=== PATIENT | female | born 1955 | race Caucasian/White ===

== ENCOUNTER 2020-09-06 07:18 | Day surgery (SDC) | payer MEDICAID, OTHER ==
[~2020-09-06 07:18] MED LIST: Midazolam 1 MG/ML 2 ML SDV ONE; Propofol 200 MG/20 ML SDV ONE; fentaNYL 100 MCG/2 ML SDV ONE
[2020-09-06] MEDS ORDERED: Dextrose 5%-Lactated Ringers 1,000 ML IV SCH (07:45)
[2020-09-06 10:34] VITALS: BP 110/72; PULSE 60
--- NOTE | 2020-09-13 13:15 | OR ---
DATE OF PROCEDURE: 09/06/2020 SURGEON: Vargas Adhikari MD PREOPERATIVE DIAGNOSIS: Indications for screening colonoscopy. POSTOPERATIVE DIAGNOSIS: Normal colonoscopic examination. OPERATIVE PROCEDURE: Flexible colonoscopy. ANESTHESIA: IV sedation. INDICATIONS FOR PROCEDURE: A 65-year-old female presenting with an indication for screening colonoscopy. She has no personal or family history of colonic neoplasia. Plan is to proceed with colonoscopy and biopsies and/or polypectomy as indicated. Potential risks including bleeding and perforation were discussed, and the patient wishes to proceed. DETAILS OF PROCEDURE: The patient was taken to the operating room, placed in a left lateral decubitus position. IV sedation was administered, after which the initial digital rectal exam was performed and was unremarkable. Colonoscope was then passed to the level of the rectum with retroflexion revealing uncomplicated hemorrhoidal columns. Scope was then eventually passed to the level of the cecum. The prep was good with only small amount of liquid stool present. To that level, no abnormalities were noted. Specifically, there were no diverticula, no areas of colitis, no polyps or other signs of neoplasia. Scope was then withdrawn and the above findings reconfirmed, and the procedure was then concluded. Given today's normal examination and lack of any personal or family history of colon neoplasia, repeat colonoscopy should be set up for 10 years. Vargas Adhikari MD /[id number]
== END 2020-09-06 10:47 | disposition home or self-care (01) ==
LOC: JP.SDS 07:18
PROVIDERS: ATTEND Surgery
DX: Z12.11 Encounter for screening for malignant neoplasm of colon (principal); F17.210 Nicotine dependence, cigarettes, uncomplicated; J44.9 Chronic obstructive pulmonary disease, unspecified
CPT/HCPCS: 45378; J2250; J2704; J3010; J7121